=== PATIENT | female | born 1985 | race African-American/Black ===

== ENCOUNTER → 2021-04-08 | Outpatient (CLI) | payer BC ==
[2021-04-08 12:52] LABS: BASOPHILS % 0.9 % (0.0-2.0); EOSINOPHILS % 0.5 % (0.0-5.0); HEMATOCRIT. 41.8 % (36.0-48.0); HEMOGLOBIN. 14.2 g/dL (12.0-16.0); LYMPHOCYTES % 17.2 % (20.0-50.0); MEAN CORPUSCULAR VOLUME 94.4 fL (81.0-99.0); MEAN PLATELET VOLUME 7.9 fl (7.4-10.4); MONOCYTES % 4.8 % (2.0-8.0); NEUTROPHILS % 76.6 % (40.0-76.0); PLATELET 393 x1000/uL (130-400); RED BLOOD CELL COUNT 4.42 mill/uL (4.2-5.4); RED CELL DISTRIBUTION WIDTH 13.5 % (11.6-14.6)
[2021-04-08 13:11] LABS: CHLORIDE 108 mEq/L (98-107)
[2021-04-08 13:12] LABS: CLARITY URINE CLEAR (CLEAR); COLOR URINE YELLOW (YELLOW); KETONES URINE TRACE (NEGATIVE); LEUKOCYTE ESTERASE URINE NEGATIVE (NEGATIVE); NITRITE URINE NEGATIVE (NEGATIVE); OCCULT BLOOD URINE NEGATIVE (NEGATIVE); PH URINE 5.5 (4.5-8.0); PROTEIN URINE NEGATIVE (NEGATIVE); SPECIFIC GRAVITY URINE 1.023 (1.005-1.030); UROBILINOGEN URINE 0.2 E.U./dL (0.2-1.0)
[2021-04-08 13:20] LABS: B-HCG QUANTITATIVE < 1 mIU/mL (<3)
[2021-04-08 13:25] LABS: HDL CHOLESTEROL 48 mg/dL (40-59)
[2021-04-08 13:27] LABS: LDL CHOLESTEROL 88 mg/dL (5-100)
[2021-04-08 13:34] LABS: HCG SCREEN NEGATIVE
[2021-04-08 13:41] LABS: HEPATITIS B SURFACE AB 176.9 mIU/mL
[2021-04-08 13:52] LABS: HEPATITIS B SURFACE ANTIGEN NEGATIVE
[2021-04-08 15:09] LABS: T4 FREE 1.08 ng/dL (0.76-1.46)
[2021-04-09 07:08] LABS: HIV SCREEN 4G Non Reactive (Non Reactive); THYROID PEROXIDASE ANTIBODY 8 IU/mL (0-34); VITAMIN D 25-OH 37.1 ng/mL (30.0-100.0)
== END | disposition home or self-care (01) ==
LOC: LAB 12:29
PROVIDERS: ATTEND Family Medicine
DX: E10.9 Type 1 diabetes mellitus without complications (principal); N91.2 Amenorrhea, unspecified
CPT/HCPCS: 36415; 80053; 80061; 81003; 82306; 83036; 84439; 84443; 84481; 84702; 84703; 85025; 86376; 86592; 86695; 86696; 86705; 86706; 86803; 87340; 87389